=== PATIENT | male | born 2000 | race Caucasian/White ===

== ENCOUNTER 2021-07-19 17:01 | Emergency (ER) | payer OTHER ==
[2021-07-19 17:16] VITALS: BP 122/82; PULSE 106
== END 2021-07-19 18:15 | disposition home or self-care (01) ==
LOC: KA.ED 17:01
DX: S80.01XA Contusion of right knee, initial encounter (principal); Z72.0 Tobacco use; W01.0XXA Fall on same level from slipping, tripping and stumbling without subsequent striking against object, initial encounter
CPT/HCPCS: 73560-RT; 99283; 99283-25